=== PATIENT | female | born 1995 | race Caucasian/White ===

== ENCOUNTER 2016-06-28 15:29 | Emergency (ER) | payer BC, OTHER ==
[2016-06-28 16:01] VITALS: BP 122/58
--- NOTE | 2016-06-28 16:23 | UC ---
Throat Pain/Nasal Jossue HPI - HPI Summary HPI Summary: pt presents with c/o dry cough, nasal congestion, sinus pressure, ear "fullness ", X 1 week. No c/o sore throat X 2 days. - History of Current Complaint Chief Complaint: UCRespiratory Stated Complaint: SORE THROAT, HEADACHE Time Seen by Provider: 06/28/16 16:16 Hx Obtained From: Patient Hx Last Menstrual Period: 06/28/16 ?: No Onset/Duration: Gradual Onset, Lasting Days Severity: Mild Cough: Nonproductive Associated Signs & Symptoms: Positive: Dysphagia, Sinus Discomfort - Allergies/Home Medications Allergies/Adverse Reactions: Allergies Allergy/AdvReac Type Severity Reaction Status Date / Time No Known Allergies Allergy Verified 06/28/16 15:51 Home Medications: Home Medications Nadolol TAB* [Corgard TAB*] 1 tab QAM 06/28/16 [History Confirmed 06/28/16] Norgestimate-Ethinyl Estradiol [Trinessa 0.18/0.215/0.25 mg-35 Mcg] 1 tab DAILY 06/28/16 [History Confirmed 06/28/16] PMH/Surg Hx/FS Hx/Imm Hx Previously Healthy: Yes - Surgical History Surgical History: Yes Surgery Procedure, Year, and Place: wisdom teeth extraction, colonscopy - Family History Known Family History: Positive: Cardiac Disease - Social History Lives: With Family Alcohol Use: Rare Substance Use Type: None Smoking Status (MU): Never Smoked Tobacco - Immunization History Most Recent Influenza Vaccination: 2016 Most Recent Tetanus Shot: UTD Most Recent Pneumonia Vaccination: N/A Review of Systems Constitutional: Negative Skin: Negative Eyes: Negative ENT: Sore Throat, Ear Ache - bilateral, nasal congestion, sinus pressure Respiratory: Cough Cardiovascular: Negative Gastrointestinal: Negative Genitourinary: Negative Motor: Negative Neurovascular: Negative Musculoskeletal: Negative Neurological: Negative Psychological: Negative All Other Systems Reviewed And Are Negative: Yes Physical Exam Triage Information Reviewed: Yes Appearance: Well-Appearing Vital Signs: Initial Vital Signs Temp 98.3 F 06/28/16 15:54 Pulse 59 06/28/16 15:54 Resp 18 06/28/16 15:54 BP 122/58 06/28/16 15:54 Pulse Ox 100 06/28/16 15:54 Eye Exam: Normal ENT Exam: Other ENT: Positive: Nasal congestion, TM bulging Neck exam: Normal Respiratory Exam: Normal Cardiovascular Exam: Normal Musculoskeletal Exam: Normal Neurological Exam: Normal Psychological Exam: Normal Skin Exam: Normal Throat Pain/Nasal Course/Dx - Differential Dx/Diagnosis Differential Diagnosis/HQI/PQRI: Influenza, Sinusitis, URI, Other - allergic rhinitis Provider Diagnoses: allergic Rhinitis Discharge - Discharge Plan Condition: Stable Disposition: HOME Prescriptions: Loratadine & Pseudoephedrine [Loratadine/Pseudoephedrin 10-240 mg] 1 tab PO DAILY #7 tab Patient Education Materials: Allergic Rhinitis (ED) Referrals: Maria L Diagle MD [Primary Care Provider] - If Needed
== END 2016-06-28 16:39 | disposition home or self-care (01) ==
LOC: UCCORT 15:29
DX: J30.9 Allergic rhinitis, unspecified (principal)
CPT/HCPCS: 99212; G0463

== ENCOUNTER 2016-10-10 11:14 | Emergency (ER) | payer BC, OTHER ==
[2016-10-10 11:40] VITALS: BP 128/68
--- NOTE | 2016-10-10 12:13 | UC ---
Cardiac HPI - HPI Summary HPI Summary: chest pain x 8 hrs, woke her up from sleep , constant mid sternal pressure, no radiation, no sob, no sweating - History of Current Complaint Chief Complaint: UCChestPain Stated Complaint: CHEST PAIN Time Seen by Provider: 10/10/16 11:28 Hx Obtained From: Patient Onset/Duration: Sudden Onset, Lasting Hours - 8, Resolved Timing: Constant Initial Severity: Severe Current Severity: Mild Chest Pain Location: Mid Sternal Character: Slow Aggravating: Nothing Alleviating: Nothing Associated Signs & Symptoms: Positive: Chest Pain. Negative: Vision Changes, Anxiety, Recent Stress, Headaches, Numbness, Tingling, Weakness, Dizziness, SOB , Swelling, Syncope, Fever, Nausea/Vomiting, Palpitations, Cough, Hemoptysis, Back Pain, Abdominal Pain, Calf Pain/Swelling - Allergy/Home Medications Allergies/Adverse Reactions: Allergies Allergy/AdvReac Type Severity Reaction Status Date / Time No Known Allergies Allergy Verified 10/10/16 11:18 Home Medications: Home Medications Ibuprofen TAB* [Advil TAB*] 200 mg PO Q6H PRN 10/10/16 [History Confirmed ] LevoCETirizine TAB (NF) [Xyzal TAB (NF)] 5 mg PO DAILY 10/10/16 [History Confirmed 10/10/16] PMH/Surg Hx/FS Hx/Imm Hx Previously Healthy: Yes Neurological History: Migraine - Surgical History Surgical History: Yes Surgery Procedure, Year, and Place: wisdom teeth extraction, colonscopy - Family History Known Family History: Positive: Cardiac Disease - Social History Alcohol Use: Rare Substance Use Type: None Smoking Status (MU): Never Smoked Tobacco - Immunization History Most Recent Influenza Vaccination: 2016 Most Recent Tetanus Shot: UTD Most Recent Pneumonia Vaccination: N/A Review of Systems Constitutional: Negative Skin: Negative Eyes: Negative ENT: Negative Respiratory: Negative Cardiovascular: Chest Pain Gastrointestinal: Negative Genitourinary: Negative All Other Systems Reviewed And Are Negative: Yes Physical Exam Triage Information Reviewed: Yes Appearance: Well-Appearing, No Pain Distress, Well-Nourished Vital Signs: Initial Vital Signs Temp 97.8 F 10/10/16 11:22 Pulse 48 10/10/16 11:22 Resp 20 10/10/16 11:22 BP 128/68 10/10/16 11:22 Pulse Ox 100 10/10/16 11:22 Vital Signs Reviewed: Yes Eyes: Positive: Conjunctiva Clear ENT: Positive: Normal ENT inspection, Hearing grossly normal, Pharynx normal Respiratory: Positive: Chest non-tender, Lungs clear, Normal breath sounds, No respiratory distress Cardiovascular: Positive: RRR, No Murmur, Pulses Normal Abdominal Exam: Normal Abdomen Description: Positive: Nontender, Soft. Negative: CVA Tenderness (R), CVA Tenderness (L), Distended, Guarding Bowel Sounds: Positive: Present Neurological: Positive: Alert, Muscle Tone Normal Skin Exam: Normal - Clinical Impression Provider Diagnoses: atypical chest pain. esophageal spasm Discharge - Discharge Plan Condition: Stable Disposition: HOME Patient Education Materials: Esophageal Spasm (ED), Bradycardia (ED) Referrals: Maria L Daigle MD [Primary Care Provider] - 7 Days Additional Instructions: low heart rate due to your Betablocker medication Nodolol , follow up with your pcp for evaluation and see if they would want to change/ stop/ decrease the dose of this medication
== END 2016-10-10 12:13 | disposition home or self-care (01) ==
LOC: UCCORT 11:14
DX: R07.89 Other chest pain (principal); K22.4 Dyskinesia of esophagus
CPT/HCPCS: 93005; 99211; G0463

== ENCOUNTER 2017-01-07 15:42 | Emergency (ER) | payer BC, OTHER ==
[2017-01-07 16:10] VITALS: BP 123/84
--- NOTE | 2017-01-07 16:49 | UC ---
Abdominal Pain Female HPI - HPI Summary HPI Summary: worsening abd pain for 2 weeks - History of Current Complaint Chief Complaint: UCGU Stated Complaint: PERSONAL Time Seen by Provider: 01/07/17 16:30 Hx Obtained From: Patient Hx Last Menstrual Period: 12/13/16 ?: No Onset/Duration: Gradual Onset, Lasting Weeks - 2, Worse Since - daily for the past 2 weeks Timing: Constant Severity Initially: Moderate Severity Currently: Severe Location: Discrete At: RLQ, Discrete At: LLQ Radiates: No Character: Cramping, Sharp Aggravating Factor(s): Nothing Alleviating Factor(s): Nothing Associated Signs and Symptoms: Positive: Negative Allergies/Adverse Reactions: Allergies Allergy/AdvReac Type Severity Reaction Status Date / Time No Known Allergies Allergy Verified 01/07/17 16:10 PMH/Surg Hx/FS Hx/Imm Hx Previously Healthy: No Cardiovascular History: Hypertension - Surgical History Surgical History: Yes Surgery Procedure, Year, and Place: wisdom teeth extraction, colonscopy - Family History Known Family History: Positive: Cardiac Disease - Social History Occupation: Employed Full-time Lives: With Family Alcohol Use: Rare Substance Use Type: None Smoking Status (MU): Never Smoked Tobacco - Immunization History Most Recent Influenza Vaccination: 2016 Most Recent Tetanus Shot: UTD Most Recent Pneumonia Vaccination: N/A Review of Systems Constitutional: Negative Skin: Negative Eyes: Negative ENT: Negative Respiratory: Negative Cardiovascular: Negative Gastrointestinal: Abdominal Pain Genitourinary: Negative Motor: Negative Neurovascular: Negative Musculoskeletal: Negative Neurological: Negative Psychological: Negative Is Patient Immunocompromised?: No All Other Systems Reviewed And Are Negative: Yes Physical Exam Triage Information Reviewed: Yes Appearance: Well-Nourished, Ill-Appearing, Pain Distress Vital Signs: Initial Vital Signs Temp 97.7 F 01/07/17 16:04 Pulse 59 01/07/17 16:04 Resp 17 01/07/17 16:04 BP 123/84 01/07/17 16:04 Pulse Ox 100 01/07/17 16:04 Vital Signs Reviewed: Yes Eye Exam: Normal Eyes: Positive: Conjunctiva Clear ENT Exam: Normal ENT: Positive: Normal ENT inspection, Hearing grossly normal. Negative: Nasal congestion, Nasal drainage, Trismus, Muffled/hoarse voice Dental Exam: Normal Neck exam: Normal Neck: Positive: Supple, Nontender, No Lymphadenopathy Respiratory Exam: Normal Respiratory: Positive: Chest non-tender, Lungs clear, Normal breath sounds, No respiratory distress, No accessory muscle use Cardiovascular Exam: Normal Cardiovascular: Positive: RRR, No Murmur, Pulses Normal, Brisk Capillary Refill Abdominal Exam: Normal Abdomen Description: Positive: No Organomegaly. Negative: Nontender, CVA Tenderness (R), CVA Tenderness (L) Bowel Sounds: Positive: Present Musculoskeletal Exam: Normal Musculoskeletal: Positive: Strength Intact, ROM Intact, No Edema Neurological Exam: Normal Neurological: Positive: Alert, Muscle Tone Normal Psychological Exam: Normal Skin Exam: Normal Abd Pain Female Course/Dx - Course Course Of Treatment: advise patient to report to ED for comprehensive evaluation - Differential Dx/Diagnosis Provider Diagnoses: Acute Abdomen pain - Physician Notification/Consults Time Discussed With Above Provider: 16:58 - Cecilia Romero Discharge - Discharge Plan Condition: Stable Disposition: OTHER Discharge Disposition Comment: To [facility] by private car Patient Education Materials: Acute Abdominal Pain (ED) Referrals: Maria L Daigle MD [Primary Care Provider] - Additional Instructions: We are advising you to report directly to the emergency department for further care--Please do not eat or drink until evaluated by the provider in the emergency department
== END 2017-01-07 17:05 ==
LOC: UCCORT 15:42
DX: R10.9 Unspecified abdominal pain (principal)
CPT/HCPCS: 81003; 84702; 99211; G0463

== ENCOUNTER 2019-06-01 12:15 | Emergency (ER) | payer BC, OTHER ==
--- OUTSIDE RECORDS SUMMARY | 2019-06-01 12:51 | XMS REPORT ---
:1995 Author Organization [facility] Address [address] 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, unspecified Problem Polycystic ovarian E28.2 Active 63768272 syndrome Problem Unspecified N83.201 Active 13364150840307483 ovarian cyst, right side Problem Rash and other R21 Active 661521842 nonspecific skin eruption Problem Excessive and N92.0 Active 895785689 frequent menstruation Problem Anal spasm K59.4 Active 33997052 Problem Other specified N89.8 Active 26942613 noninflammatory disorders of vagina Problem Leiomyoma of D25.9 Active 45153616 uterus, unspecified Problem Other specified N92.5 Active 19357080 irregular menstruation Problem Body mass index Z68.36 Active 547856883189411 (BMI) 36.0-36.9, adult Problem Excessive and N92.0 Active 965303585 frequent menstruation with regular cycle Problem Acute vaginitis N76.0 Active 93052284 Problem 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, unspecified ALLERGIES No Information ENCOUNTERS Encounter Location Date Diagnosis [facility] [address] May, OBGYN [place], [place] [id number] [facility] [address] May, OBGYN [place] [id number] [facility] [address] Mar, OBGYN [place] [id number] [facility] 103 Dec, Other specified irregular OBGYN [facility], menstruation N92.5 ; Anal [place] [id number] spasm K59.4 ; Acute vaginitis N76.0 ; Leiomyoma of uterus, unspecified D25.9 and Anogenital herpesviral infection, unspecified A60.9 [facility] 103 Sep, Other specified irregular OBGYN [facility], menstruation N92.5 ; Anal [place] [id number] spasm K59.4 and Leiomyoma of uterus, unspecified D25.9 [facility] [address] Sep, Other specified irregular OBGYN [facility], menstruation N92.5 [place] [id number] [place] [facility] [address] [place] [address] Sep, Other specified irregular OBGYN [address] [place], menstruation N92.5 and [place] [id number] Anal spasm K59.4 [facility] 103 Sep, OBGYN [place] [id number] [facility] 103 Aug, [place]BGYN [place] [id number] [facility] 103 Aug, [place]YN [place] [id number] [facility] 103 May, [facility] gynecological examination [place] [id number] (general) (routine) with abnormal findings Z01.411 ; Acute vaginitis N76.0 ; Other specified irregular menstruation N92.5 ; Family history of malignant neoplasm of breast Z80.3 ; Family history of malignant neoplasm of ovary Z80.41 and Anal spasm K59.4 [facility] [address] May, Excessive and frequent OBGYN [facility] menstruation with regular [place] [id number] cycle N92.0 and Polycystic ovarian syndrome E28.2 [facility] 103 May, OBGYN [place] [id number] [facility] 103 May, Acute vaginitis N76.0 OBGYN [place] [id number] [facility] 103 May, OBGYN [place] [id number] [facility] [address] [place] [address] May, Acute vaginitis N76.0 ; [facility] [address] [place], Family history of [place] [id number] malignant neoplasm of breast Z80.3 ; Family history of malignant neoplasm of ovary Z80.41 ; Other specified irregular menstruation N92.5 and Anal spasm K59.4 [facility] 103 May, OBGYN [place] [id number] [facility] 103 May, OBGYN [place] [id number] [facility] [address] [place] [address] [facility] Apr, Acute vaginitis N76.0 ; [facility] [address] [place], Other specified irregular [place] [id number] menstruation N92.5 and Anal spasm K59.4 [facility] 103 Jan, Excessive and frequent OBGYN [facility], menstruation with regular [place] [id number] cycle N92.0 ; Body mass index (BMI) 36.0-36.9, adult Z68.36 ; PELVIC PAIN 625.9 ; Acute vaginitis N76.0 ; Localized enlarged lymph nodes R59.0 and Anogenital herpesviral infection, unspecified A60.9 [facility] 103 Jan, Polycystic ovarian OBGYN [facility], syndrome E28.2 and Pelvic [place] [id number] and perineal pain R10.2 [facility] 103 Jan, Excessive and frequent OBGYN [facility], menstruation with regular [place] [id number] cycle N92.0 ; Body mass index (BMI) 36.0-36.9, adult Z68.36 ; PELVIC PAIN 625.9 ; Acute vaginitis N76.0 and Localized enlarged lymph nodes R59.0 [place] [facility] [address] [place] [address] Sep, Excessive and frequent OBGYN [address] [place], menstruation with regular [place] [id number] cycle N92.0 and Body mass index (BMI) 36.0-36.9, adult Z68.[address] [place] [address] Aug, Polycystic ovarian [facility] [place] [id number] syndrome E28.2 ; Body mass index (BMI) 36.0-36.9, adult Z68.36 ; Excessive and frequent menstruation with regular cycle N92.0 and Polyp of corpus uteri N84.0 [facility] 103 Aug, OBGYN [place] [id number] [place] [facility] [address] [place] [address] Aug, Excessive and frequent OBGYN [address] [place], menstruation with regular [place] [id number] cycle N92.0 and Body mass index (BMI) 36.0-36.9, adult Z68.36 [facility] 103 Aug, OBGYN [place], [place] [id number] [facility] 103 July, OBGYN [place], [place] [id number] [place] [facility] [address] [place] [address] July, Excessive and frequent OBGYN [address] [place], menstruation with regular [place] [id number] cycle N92.0 [facility] 103 July, OBGYN [place] [id number] [facility] 103 July, OBGYN [place] [id number] [facility] 103 July, Excessive and frequent OBGYN [facility], menstruation N92.0 [place] [id number] [facility] [address] July, Excessive and frequent OBGYN [facility], menstruation N92.0 [place] [id number] [facility] 103 July, Polycystic ovarian OBGYN [facility], syndrome E28.2 and [place] [id number] Excessive and frequent menstruation N92.0 [facility] 103 Jul, Other specified OBGYN [facility], noninflammatory disorders [place] [id number] of vagina N89.8 [facility] 103 Jul, Polycystic ovarian OBGYN [facility], syndrome E28.2 ; Other [place] [id number] specified noninflammatory disorders of vagina N89.8 and Excessive and frequent menstruation N92.0 [facility] 103 Jul, [place] [id number] [facility] 103 Jul, OBGYN [facility], [place] [id number] [facility] 103 May, [facility], of vagina, unspecified [place] [id number] N89.9 [facility] 103 May, Encounter for [facility], gynecological examination [place] [id number] (general) (routine) with abnormal findings Z01.411 ; Encounter for screening for infections with a predominantly sexual mode of transmission Z11.3 ; Encounter for surveillance of contraceptive pills Z30.41 ; Polycystic ovarian syndrome E28.2 and Encounter for screening for malignant neoplasm of cervix Z12.4 [facility] 103 13 May, 2017 Rash and other nonspecific [facility], skin eruption R21 and [place] [id number] Other specified noninflammatory disorders of vagina N89.8 [facility] 103 May, Other specified [facility], noninflammatory disorders [place] [id number] of vagina N89.8 and Rash and other nonspecific skin eruption R21 [facility] 103 May, OBGYN [place] [id number] [facility] 103 May, OBGYN [place] [id number] [facility] 103 Mar, OBGYN [place] [id number] [facility] 103 Mar, Other specified OBGYN [facility], noninflammatory disorders [place] [id number] of vagina N89.8 ; Polycystic ovarian syndrome E28.2 and Unspecified ovarian cyst, right side N83.201 [facility] 103 Mar, Polycystic ovarian OBGYN [facility], syndrome E28.2 and [place] [id number] Unspecified ovarian cyst, right side N83.201 [facility] 103 Dec, OBGYN [place] [id number] [facility] 103 Dec, Pelvic and perineal pain OBN [facility], R10.2 ; Unspecified [place] [id number] ovarian cyst, right side N83.201 and Other specified noninflammatory disorders of vagina N89.8 [facility] 103 Dec, OBGYN [place] [id number] [facility] 103 May, OBGYN [place] [id number] [facility] 103 Apr, OBGYN [place] [id number] [facility] 103 Apr, Encounter for [facility], gynecological examination [place] [id number] (general) (routine) without abnormal findings Z01.419 ; Encounter for screening for infections with a predominantly sexual mode of transmission Z11.3 ; Encounter for surveillance of contraceptive pills Z30.41 and Other specified irregular menstruation N92.5 [facility] 103 May, Unspecified ovarian cysts OBN [facility], N83.20 and Pelvic and [place] [id number] perineal pain R10.2 [facility] 103 May, Other ovarian cysts N83.29 OBGYN [place] [id number] [facility] 103 May, [place] [id number] [facility] 103 Apr, [facility], prescription of other [place] [id number] contraceptives Z30.018 [facility] 103 Apr, Unspecified [facility] cysts [facility], N83.20 ; Encounter for [place] [id number] contraceptive management, unspecified Z30.9 ; Disorder of adrenal gland, unspecified E27.9 and Pelvic and perineal pain R10.2 [facility] 103 Apr, [facility], contraceptive management, [place] [id number] unspecified Z30.9 and Unspecified ovarian cysts N83.20 [facility] 103 Apr, OBGYN [place] [id number] [facility] 103 Mar, OBGYN [place], [place] [id number] [facility] 103 Mar, [facility], gynecological examination [place] [id number] (general) (routine) without abnormal findings Z01.419 ; Encounter for other general counseling and advice on contraception Z30.09 ; Polycystic ovarian syndrome E28.2 ; Encounter for screening for infections with a predominantly sexual mode of transmission Z11.3 and Abnormal weight gain R63.5 IMMUNIZATIONS No Known Immunizations SOCIAL HISTORY Never Assessed REASON FOR REFERRAL FUNCTIONAL STATUS PLAN OF CARE VITAL SIGNS MEDICATIONS Unknown Medications PROCEDURES No Known procedures RESULTS No Results REASON FOR VISIT billing issues - 03/19/2019 Insurance Providers [facility] Member Patient Patient Patient Patient Patient Subscriber Subscriber Subscriber Group Insurance Plan Plan Plan Plan ID Relationship Address Phone Name Date of ID Name Date of No Type Insurance Insurance Insurance Coverage to Subscriber Address Phone Name Dates [employer] [phone] [place] [place] [id number] Blue [id number] 89 Blue [place] 0 Cross/[place] Cross/Blue Shield [id number] Shield [employer] [phone] [place] [id number] Blue [id number] 89 Blue [place] 8 [place] Cross/Blue Shield [id number] Shield [employer] [phone] [place] [id number] Blue [id number] 89 Blue [place] 8 [place]/Blue Shield [id number] Shield [employer] [phone] Excell[employer] [place] [id number] Blue 68319 89 Blue [place] 1 Cross/Blue [place] Cross/Blue Shield [id number] Shield [employer] [phone] U[employer] [place] [id number] [address] [facility] [address] [place] [phone] P[place] [id number] [facility] [id number] MEDICAL (GENERAL) HISTORY Type Description Date Medical History PCOS Medical History Common Migraine Medical History Melanoma- back Surgical History wisdom teeth extraction 2013 Surgical History colonoscopy summer 2013 Surgical History Bx -Rib cage-Shoulder blade- mole removal 2017 Surgical History hysteroscopy/polypectomy 09/26/17 Surgical History two moles removed one on back and stomach 06/21/18
[2019-06-01 13:00] VITALS: BP 111/86
--- NOTE | 2019-06-01 13:05 | UC ---
Respiratory Complaint HPI - HPI Summary HPI Summary: 24-year-old female presents with 2 day history of a dry nonproductive cough. States she is having some mild shortness of breath and feels wheezy at times. Associated with some fatigue and headache. Denies fever, chills, nasal congestion, runny nose, sore throat, chest pain, abdominal pain, nausea, or vomiting. - History of Current Complaint Chief Complaint: UCRespiratory Stated Complaint: COUGH, CONGESTION Time Seen by Provider: 06/01/19 12:53 Hx Obtained From: Patient Hx Last Menstrual Period: 05/31/2019 Pain Intensity: 5 - Allergies/Home Medications Allergies/Adverse Reactions: Allergies Allergy/AdvReac Type Severity Reaction Status Date / Time No Known Allergies Allergy Verified 06/01/19 12:57 Home Medications: Home Medications Nadolol TAB* [Corgard TAB*] 20 mg QAM 06/28/16 [History Confirmed 06/01/19] Ibuprofen TAB* [Advil TAB*] 600 mg PO Q6H PRN 10/10/16 [History Confirmed ] LevoCETirizine TAB (NF) [Xyzal TAB (NF)] 5 mg PO DAILY 10/10/16 [History Confirmed 06/01/19] Albuterol HFA INHALER* [Ventolin HFA Inhaler*] 2 puff INH Q4H PRN #1 mdi [Rx] Benzonatate CAP* [Tessalon 100 MG CAP*] 100 mg PO TID PRN #21 cap 06/01/19 [Rx] Ethinyl Estradiol/Drospirenone [Margarette 28 Tablet (Nf)] 1 tab PO DAILY 06/01/19 [ History Confirmed 06/01/19] PMH/Surg Hx/FS Hx/Imm Hx Neurological History: Migraine - Surgical History Surgical History: Yes Surgery Procedure, Year, and Place: wisdom teeth extraction, colonscopy Uterine polyp - Family History Known Family History: Positive: Cardiac Disease - Social History Occupation: Employed Full-time Lives: With Family Alcohol Use: Rare Substance Use Type: None Smoking Status (MU): Never Smoked Tobacco - Immunization History Most Recent Influenza Vaccination: 2016 Most Recent Tetanus Shot: UTD Most Recent Pneumonia Vaccination: N/A Review of Systems All Other Systems Reviewed And Are Negative: Yes Constitutional: Negative: Fever, Chills Skin: Negative: Rash Eyes: Negative: Drainage, Eye Redness ENT: Negative: Sore Throat, Ear Ache, Nasal Discharge, Sinus Congestion, Sinus Pain/Tenderness Respiratory: Positive: Shortness Of Breath, Cough, Other - Wheezing Cardiovascular: Negative: Chest Pain Gastrointestinal: Negative: Abdominal Pain, Vomiting, Diarrhea, Nausea Genitourinary: Positive: Negative Musculoskeletal: Positive: Negative Neurological/Mental Status: Positive: Headache Is Patient Immunocompromised?: No Physical Exam - Summary Physical Exam Summary: GENERAL APPEARANCE: Well developed, well nourished, alert and cooperative, and appears to be in no acute distress. EYES: Conjunctiva clear. No drainage. EARS: External auditory canals and tympanic membranes clear, hearing grossly intact. NOSE: No nasal discharge. THROAT: Pharynx normal. No tonsilar inflammation, swelling, exudate, or lesions. Uvula midline. NECK: Neck supple, non-tender without lymphadenopathy. CARDIAC: Normal S1 and S2. No S3, S4 or murmurs. Rhythm is regular. There is no peripheral edema, cyanosis or pallor. Extremities are warm and well perfused. Capillary refill is less than 2 seconds. Peripheral pulses intact. LUNGS: Clear to auscultation without rales, rhonchi, wheezing or diminished breath sounds. Dry nonn-productive cough. ABDOMEN: Positive bowel sounds. Soft, nondistended, nontender. No guarding or rebound. No masses or hepatosplenomegally. MUSKULOSKELETAL: ROM intact to all extremities. No joint erythema or tenderness. Normal muscular development. Normal gait. SKIN: Skin normal color, texture and turgor with no lesions or eruptions. Triage Information Reviewed: Yes Vital Signs: Initial Vital Signs Temp 98.5 F 06/01/19 12:54 Pulse 88 06/01/19 12:54 Resp 20 06/01/19 12:54 BP 111/86 06/01/19 12:54 Pulse Ox 100 06/01/19 12:54 Vital Signs Reviewed: Yes Respiratory Course/Dx - Course Course Of Treatment: 24-year-old female presents with 2 day history of a dry nonproductive cough. States she is having some mild shortness of breath and feels wheezy at times. Associated with some fatigue and headache. Denies fever, chills, nasal congestion, runny nose, sore throat, chest pain, abdominal pain, nausea, or vomiting. Afebrile. Vital signs stable. Patient hand no nasal congestion, abnormal TMs, normal pharynx, no cervical lymphadenopathy, clear bilateral breath sounds, dry nonproductive cough, and otherwise unremarkable exam. We discussed based on her symptoms she likely has an acute bronchitis and I'm recommending symptomatic treatment at this time including an albuterol inhaler 2 puffs every 4-6 hours as needed for shortness of breath or wheezing and Tessalon Perles one capsule every 8 hours as needed for cough. She is to follow -up with her primary care provider in 5-7 days if symptoms are not improving. Anticipatory guidance and warning symptoms are. The patient. Verbalizes understanding and agrees with plan of care. - Differential Dx/Diagnosis Differential Diagnosis/HQI/PQRI: Bronchitis, Influenza, Lower Resp Infection Provider Diagnosis: Acute bronchitis Discharge ED - Sign-Out/Discharge Documenting (check all that apply): Patient Departure All imaging exams completed and their final reports reviewed: No Studies - Discharge Plan Condition: Stable Disposition: HOME Prescriptions: Albuterol HFA INHALER* [Ventolin HFA Inhaler*] 2 puff INH Q4H PRN #1 mdi PRN Reason: Sob/Wheezing Benzonatate CAP* [Tessalon 100 MG CAP*] 100 mg PO TID PRN #21 cap PRN Reason: Cough Patient Education Materials: Acute Bronchitis (ED) Referrals: Maria L Daigle MD [Primary Care Provider] - 5 Days Additional Instructions: Your history and exam are consistent with acute bronchitis which is most often caused by a viral infection. Viral infections do not respond to antibiotics and are limited to the treatment of symptoms. Viral infections typically run their course in 7-10 days. Be aware that the cough with bronchitis may persist for 2-3 weeks even if other symptoms have improved. Get plenty of rest. Drink plenty of fluids. Run a cool mist humidifer in your room at night. Take over the counter acetaminophen (Tylenol) or ibuprofen (Advil, Motrin) according to directions as needed for pain or fever. Use the albuterol inhaler 2 puffs every 4-6 hours as needed for shortness of breath, wheezing, or coughing fits. Take Tessalon Perles 1 cap every 8 hours as needed for cough. Follow up with your primary care provider in 5-7 days if symptoms do not improve. Seek immediate medical attention in the emergency room if you have fever greater than 100.5 F despite taking acetaminophen or ibuprofen, have chest pain , difficulty breathing, or have any worsening of symptoms. - Billing Disposition and Condition Condition: STABLE Disposition: Home
== END 2019-06-01 13:32 | disposition home or self-care (01) ==
LOC: UCCORT 12:15
DX: J20.9 Acute bronchitis, unspecified (principal); R51 Headache
CPT/HCPCS: 99212; G0463